=== PATIENT | female | born 1955 | race Asian ===

== ENCOUNTER 2016-10-03 08:12 | Day surgery (SDC) | payer OTHER ==
[~2016-10-03] VITALS: Ht 157.5 cm; Wt 90.7 kg
[~2016-10-03 08:12] MED LIST: ALBUTEROL0.83 MG/ML IH; BONIVA150 MG PO; CALCIUM CITRATE1 TA4 PO; CALCIUM CITRATE1 TA7 PO; FISH OIL 1000MG1 CAP PO; LISINOPRIL10 MG PO; NEXIUM 20MG CAP20 MG PO; NEXIUM 40MG40 MG PO; NORVASC 5MG5 MG/TAB PO; OMEGA 31000 MG PO; OSCAL 500MG/VI500 MG PO; PAXIL 20MG20 MG PO; ROXICODONE 55 MG/TAB PO; RT ALBUTER2.5 MG/0.5 IH; RT SPIRIVA18 MCG IH; SEREVENT IH; SINGULAIR 110 MG/TAB PO; SINGULAIR10 MG PO; SPIRIVA INH IH; XOLAIR150 MG SC; ZOCOR 10MG10 MG; ZOCOR 20MG20 MG PO; ZYLOPRIM 300MG300 MG PO; ZYRTEC 10MG PO; ZYRTEC 10MG10 MG PO
[2016-10-03 08:58] VITALS: BP 140/71; PULSE 86; TEMP 97.6
[2016-10-03] MEDS ORDERED: RT ADVAIR 528 DISKUS IH (09:09)
[2016-10-03 10:30] VITALS: BP 130/65; PULSE 95; TEMP 98.4
[2016-10-03 10:45] VITALS: BP 126/67; PULSE 83
[2016-10-03 11:00] VITALS: BP 124/66; PULSE 85
[2016-10-03 11:15] VITALS: BP 125/71; PULSE 83
== END 2016-10-03 12:00 | disposition home or self-care (01) ==
LOC: SDCO 08:12
DX: J44.0 Chronic obstructive pulmonary disease with (acute) lower respiratory infection (principal); J20.9 Acute bronchitis, unspecified; J45.40 Moderate persistent asthma, uncomplicated; J32.8 Other chronic sinusitis; J30.9 Allergic rhinitis, unspecified; I10 Essential (primary) hypertension; K21.9 Gastro-esophageal reflux disease without esophagitis; M10.9 Gout, unspecified; G47.33 Obstructive sleep apnea (adult) (pediatric); Z90.2 Acquired absence of lung [part of]; Z87.891 Personal history of nicotine dependence
CPT/HCPCS: J0456; J2704; J2920; J7050; J7120

== ENCOUNTER → 2016-10-22 | Outpatient (CLI) | payer OTHER ==
[~2016-10-22] MED LIST changes: +RT ADVAIR 528 DISKUS IH
== END ==
LOC: COL.PUL 10:35
DX: J44.9 Chronic obstructive pulmonary disease, unspecified (principal); Z87.891 Personal history of nicotine dependence

== ENCOUNTER 2016-12-09 11:00 | Outpatient (RCR) | payer OTHER ==
[2016-10-10 10:19] VITALS: BP 139/66; PULSE 75; TEMP 97.9
[2016-11-06 14:43] VITALS: BP 127/68; PULSE 85; TEMP 98.3
[~2016-12-09] VITALS: Ht 157.5 cm; Wt 88.1 kg
[2016-12-09 11:15] VITALS: BP 128/78; PULSE 67; TEMP 98
== END 2017-01-08 ==
LOC: EUO
DX: J44.9 Chronic obstructive pulmonary disease, unspecified (principal); Z79.899 Other long term (current) drug therapy
CPT/HCPCS: J2357

== ENCOUNTER 2017-03-12 11:00 | Outpatient (RCR) | payer OTHER ==
[2017-01-16 09:16] VITALS: BP 131/74; PULSE 82; TEMP 98.2
[2017-02-12 10:26] VITALS: BP 148/79; PULSE 93; TEMP 97.3
[~2017-03-12] VITALS: Ht 157.5 cm; Wt 91.0 kg
[2017-03-12 10:45] VITALS: BP 125/77; PULSE 81
== END 2017-04-16 | disposition home or self-care (01) ==
LOC: EUO
DX: J44.9 Chronic obstructive pulmonary disease, unspecified (principal)

== ENCOUNTER → 2018-08-16 | Outpatient (CLI) | payer OTHER, MEDICARE ==
[~2018-08-16] VITALS: Ht 157.5 cm; Wt 98.6 kg
[~2018-08-16] MED LIST changes: +PROTONIX 40MG T40 MG PO
[2018-08-16 11:23] VITALS: BP 123/96; PULSE 80; TEMP 97.8
== END ==
LOC: EUO 10:41
DX: Z79.899 Other long term (current) drug therapy (principal)
CPT/HCPCS: J2357

== ENCOUNTER → 2018-10-22 | Outpatient (CLI) | payer MEDICARE, OTHER | LOC: ZCOL.LAB 21:22 | DX: L30.9 Dermatitis, unspecified (principal) ==

== ENCOUNTER 2021-05-14 08:02 | Inpatient (IN) | payer MEDICARE, OTHER ==
[~2021-05-14] VITALS: Ht 157.5 cm; Wt 82.2 kg
[~2021-05-14 08:02] MED LIST changes: +EPA FISH OIL1 SGL PO; +NORVASC 10MG10 MG PO; -OMEGA 31000 MG PO; -PROTONIX 40MG T40 MG PO; +PROTONIX20 MG PO; +RT ADVAIR 228 DISKUS IH; -RT ADVAIR 528 DISKUS IH
[2021-05-14 09:22] LABS: BASO % 0.2 % (0.0-2.0); EOS % 0.2 % (0.0-4.0); GRAN # 3.6 K/mm3 (1.4-6.5); HEMATOCRIT 39.6 % (37.0-47.0); HEMOGLOBIN 12.5 g/dl (12.5-16.0); LYMPH # 0.9 K/mm3 (1.2-3.4); LYMPH % 17.8 % (20.0-51.0); MEAN CELL VOLUME 72 fl (80.0-100.0); MEAN CORPUSCULAR HEMOGLOBIN 23 pg (27-31); MEAN CORPUSCULAR HGB CONC 32 g/dl (33.0-37.0); MONO # 0.5 K/mm3 (0.1-0.6); MONO % 9.4 % (1.7-9.3); PLATELET COUNT 165 K/mm3 (130-400); RED BLOOD COUNT 5.53 M/mm3 (4.10-5.30); REDCELL DISTRIBUTION WIDTH-CV 18.8 % (11.5-14.5)
[2021-05-14 09:34] LABS: ALANINE AMINOTRANSFERASE 23 U/L (0-55); ALBUMIN 3.7 gm/dL (3.4-4.8); ALKALINE PHOSPHATASE 83 U/L (40-150); ANION GAP 13 mmol/L (7-16); AST,SGOT 33 U/L (5-34); BILIRUBIN,TOTAL 0.4 mg/dL (0.2-1.2); BLOOD UREA NITROGEN 9 mg/dL (10-20); CALCIUM 8.4 mg/dL (8.4-10.2); CARBON DIOXIDE 22 mmol/L (23-31); CHLORIDE 103 mmol/L (98-107); CREATININE, serum 0.75 mg/dL (0.57-1.11); GLUCOSE 115 mg/dL (70-99); POTASSIUM 3.7 mmol/L (3.5-4.5); SODIUM 138 mmol/L (136-145)
[2021-05-14 09:53] LABS: TROPONIN-I < 0.010 ng/mL (0.00-0.033)
[2021-05-14] MEDS ORDERED: MILLIPRED5 MG PO (12:51)
[2021-05-14] MEDS ORDERED: ATARAX 25MG25 MG/TAB PO (12:52)
[2021-05-14] MEDS ORDERED: DUPIXENT300 MG/2 M SQ (12:53)
--- NOTE | 2021-05-14 14:06 | NUR ---
PT ADMISSION INTAKE AND ASSESSMENT COMPLETED. DENIES ANY PAIN. CURRENTLY ON 4.5L VIA NC. ORIENTED PT TO ROOM. DENIES ANY NEEDS AT THIS TIME. WILL CONTINUE TO MONITOR.
[2021-05-14 16:30] VITALS: BP 148/58; PULSE 85; TEMP 99.3
[2021-05-14 19:29] VITALS: BP 121/61; PULSE 80; TEMP 98.8
--- NOTE | 2021-05-14 20:30 | NUR ---
Initial shift assessment done- states is SOB with exertion, using BSC withoutproblems. VSS o2 at 4.5L/nc, sats 92%, tele on SR, lung sounds with scattered wheezing-will call resp therapy for a treatment , states onlt has pain with coughing -
[2021-05-14 23:50] VITALS: BP 125/60; PULSE 80; TEMP 98.6
[2021-05-15 04:39] VITALS: BP 129/61; PULSE 90; TEMP 98.1
--- NOTE | 2021-05-15 05:54 | NUR ---
Quiet night, VSS, no requests, o2 at 5L/nc sats 90- 91%
[2021-05-15 06:37] LABS: HEMOGLOBIN 11.5 g/dl (12.5-16.0); MEAN CELL VOLUME 72 fl (80.0-100.0); MEAN CORPUSCULAR HEMOGLOBIN 22 pg (27-31); MEAN CORPUSCULAR HGB CONC 31 g/dl (33.0-37.0); PLATELET COUNT 169 K/mm3 (130-400); RED BLOOD COUNT 5.13 M/mm3 (4.10-5.30); REDCELL DISTRIBUTION WIDTH-CV 18.1 % (11.5-14.5)
[2021-05-15 06:46] LABS: HEMATOCRIT 36.8 % (37.0-47.0)
[2021-05-15 07:08] LABS: ALBUMIN 3.1 gm/dL (3.4-4.8); C-REACTIVE PROTEIN 6.07 mg/dL (0.00-0.50); CALCIUM 8.2 mg/dL (8.4-10.2); CREATININE, serum 0.67 mg/dL (0.57-1.11); MAGNESIUM 2.1 mg/dL (1.6-2.6); PHOSPHOROUS 3.1 mg/dL (2.3-4.7)
[2021-05-15 07:20] LABS: BAND 6 % (0-10); LYMPHOCYTE 28 % (20.0-51.0); NEUTROPHILS 54 % (42.0-75.2); PLATELET ESTIMATE NORMAL (NORMAL)
[2021-05-15 08:00] VITALS: BP 116/73; PULSE 82; TEMP 98.8
--- NOTE | 2021-05-15 10:08 | NUR ---
The patient is COVID positive. SW contacted the patient to discuss discharge plan. The patient lives in [place] with her , Desean (ph#[phone]). She reports independence with ADLs and has a cane and walker available. The patient states that she has nocturnal oxygen and a CPAP from [facility]. The patient's receives primary care at [facility] and she receives her medications from [place] [facility]. The patient does not have a DPOA-HC and she was not interested in completing one at this time. The patient plans on returning home with her upon discharge. The patient is currently requiring 6 liters of oxygen. SW to continue to monitor. *Discharge plan: home with *
[2021-05-15 11:30] VITALS: BP 110/61; PULSE 80; TEMP 98.3
[2021-05-15 16:00] VITALS: BP 119/57; PULSE 78; TEMP 97.8
[2021-05-15 21:31] VITALS: BP 113/38; PULSE 79; TEMP 99
[2021-05-15 23:30] VITALS: BP 108/57; PULSE 73; TEMP 97.9
--- NOTE | 2021-05-16 03:10 | NUR ---
patient doing well tonight. denies pain. int patent and flushes. 5 L O2 infusing via NC. scheduled medications given, see MAR.
[2021-05-16 03:42] VITALS: BP 122/69; PULSE 76; TEMP 97.5
[2021-05-16 06:57] LABS: HEMOGLOBIN 11.6 g/dl (12.5-16.0); MEAN CELL VOLUME 72 fl (80.0-100.0); MEAN CORPUSCULAR HEMOGLOBIN 23 pg (27-31); MEAN CORPUSCULAR HGB CONC 32 g/dl (33.0-37.0); PLATELET COUNT 210 K/mm3 (130-400); RED BLOOD COUNT 5.08 M/mm3 (4.10-5.30); REDCELL DISTRIBUTION WIDTH-CV 18.6 % (11.5-14.5)
[2021-05-16 07:01] LABS: HEMATOCRIT 36.7 % (37.0-47.0)
[2021-05-16 07:31] LABS: CREATININE, serum 0.71 mg/dL (0.57-1.11); MAGNESIUM 2.1 mg/dL (1.6-2.6); PHOSPHOROUS 3.1 mg/dL (2.3-4.7); POTASSIUM 4.1 mmol/L (3.5-4.5)
[2021-05-16 07:50] LABS: BAND 1 % (0-10); LYMPHOCYTE 17 % (20.0-51.0); NEUTROPHILS 73 % (42.0-75.2)
[2021-05-16 07:51] LABS: ANISOCYTOSIS 1+; HYPOCHROMIA 2+; MICROCYTOSIS 1+; PLATELET ESTIMATE NORMAL (NORMAL)
[2021-05-16 07:55] LABS: OVALOCYTES 1+; TARGET CELLS 1+
[2021-05-16 08:30] VITALS: BP 114/50; PULSE 79; TEMP 98.3
[2021-05-16 13:00] VITALS: BP 122/58; PULSE 79
[2021-05-16 16:25] VITALS: BP 139/82; PULSE 112; TEMP 98.9
[2021-05-16 19:57] VITALS: BP 117/56; PULSE 71; TEMP 98
--- NOTE | 2021-05-16 21:22 | NUR ---
ALERT ANDOX3. DENIES SOA EXC W AMBULATION. NO CHEST PAIN OR DIZZY. NO PAIN- HEAD ACHES, REQ TYL AND ORDERED. ASSESSMENT COMPLETE. IV DOXY HUNG.PM MEDS. CALL [facility] REACH.
[2021-05-16 23:59] VITALS: BP 114/41; PULSE 75; TEMP 98.2
[2021-05-17 04:31] VITALS: BP 111/57; PULSE 82; TEMP 98.6
[2021-05-17 06:15] LABS: HEMATOCRIT 37.3 % (37.0-47.0); HEMOGLOBIN 11.6 g/dl (12.5-16.0); MEAN CELL VOLUME 73 fl (80.0-100.0); MEAN CORPUSCULAR HEMOGLOBIN 23 pg (27-31); MEAN CORPUSCULAR HGB CONC 31 g/dl (33.0-37.0); PLATELET COUNT 279 K/mm3 (130-400); RED BLOOD COUNT 5.11 M/mm3 (4.10-5.30); REDCELL DISTRIBUTION WIDTH-CV 18.1 % (11.5-14.5)
[2021-05-17 06:28] LABS: ALBUMIN 3.1 gm/dL (3.4-4.8); C-REACTIVE PROTEIN 1.07 mg/dL (0.00-0.50); CALCIUM 8.3 mg/dL (8.4-10.2); CREATININE, serum 0.69 mg/dL (0.57-1.11); PHOSPHOROUS 3.3 mg/dL (2.3-4.7)
[2021-05-17 07:59] LABS: BAND 4 % (0-10); LYMPHOCYTE 19 % (20.0-51.0); NEUTROPHILS 66 % (42.0-75.2); OVALOCYTES 1+; PLATELET ESTIMATE NORMAL (NORMAL)
--- NOTE | 2021-05-17 08:20 | NUR ---
PATIENT IS A&O X 4, NO ACUTE DISTRESS. ASSESSMENT IS NOT ATYPICAL FOR PATIENT WITH COVID, PATIENT HAS NO CONCERNS AT THIS TIME. IV SITE HAS NO REDNESS OR SWELLING, FLUSHES WELL.
[2021-05-17 08:30] VITALS: BP 111/46; PULSE 78; TEMP 98.2
[2021-05-17 11:39] VITALS: BP 134/62; PULSE 81; TEMP 98
[2021-05-17 16:16] VITALS: BP 132/63; PULSE 80
[2021-05-17 20:30] VITALS: BP 140/78; PULSE 89; TEMP 98
--- NOTE | 2021-05-17 21:29 | NUR ---
ALERT ANDOX4. DENIES SOA WHEN IN BED, IV TO RT AC LOOKS RED AND C/O SORENESS. DC'D. NEW SITE TO LEFT FA WITHOUT INCIDENT. IV ANTIBOTICS AND PM MEDS GIVEN. PT CALL LIGHT WI REACH. NEEDS MET.
[2021-05-18 00:23] VITALS: BP 126/59; PULSE 75; TEMP 98.4
[2021-05-18 04:44] VITALS: BP 133/69; PULSE 84; TEMP 98.4
--- NOTE | 2021-05-18 06:03 | NUR ---
RESTED WITHOUT INCIDENT. ANTICIPATES DC TODAY. NEEDS MET
[2021-05-18 07:38] LABS: HEMATOCRIT 37.3 % (37.0-47.0); HEMOGLOBIN 11.7 g/dl (12.5-16.0); MEAN CELL VOLUME 73 fl (80.0-100.0); MEAN CORPUSCULAR HEMOGLOBIN 23 pg (27-31); MEAN CORPUSCULAR HGB CONC 31 g/dl (33.0-37.0); MEAN PLATELET VOLUME 12.2 fl (7.4-10.4); PLATELET COUNT 240 K/mm3 (130-400); REDCELL DISTRIBUTION WIDTH-CV 18.2 % (11.5-14.5)
[2021-05-18 08:05] VITALS: BP 122/62; PULSE 76; TEMP 98.1
[2021-05-18 08:05] LABS: ALBUMIN 3.1 gm/dL (3.4-4.8); C-REACTIVE PROTEIN 0.58 mg/dL (0.00-0.50); CREATININE, serum 0.64 mg/dL (0.57-1.11); MAGNESIUM 1.9 mg/dL (1.6-2.6); PHOSPHOROUS 2.9 mg/dL (2.3-4.7); POTASSIUM 3.6 mmol/L (3.5-4.5)
[2021-05-18 08:45] LABS: BAND 1 % (0-10); NEUTROPHILS 67 % (42.0-75.2)
[2021-05-18 08:46] LABS: LYMPHOCYTE 20 % (20.0-51.0); OVALOCYTES 1+
[2021-05-18 08:47] LABS: PLATELET ESTIMATE NORMAL (NORMAL)
--- NOTE | 2021-05-18 10:30 | NUR ---
PT RESTING IN BED, MORNING MEDICATIONS GIVEN. SHIFT ASSESSMENT COMPLETED. DENIES ANY PAIN OR NEEDS. CURRENTLY ON 4L VIA NC. IV INFILTRATED, NEW SITE STARTED TO R FOREARM. WILL CONTINUE TO MONITOR.
[2021-05-18 11:39] VITALS: BP 140/79; PULSE 85; TEMP 98.2
[2021-05-18 16:13] VITALS: BP 127/61; PULSE 82; TEMP 97.7
[2021-05-18 19:58] VITALS: BP 129/59; PULSE 72; TEMP 98
--- NOTE | 2021-05-18 20:54 | NUR ---
ALERT AND OX4. DENIES SOA, OR CHEST PAIN. PM MEDS GIVEN. IV ANTIBOTICS. CALL LIGHT WI REACH.
[2021-05-19 00:45] VITALS: BP 117/69; PULSE 83; TEMP 97.7
[2021-05-19 04:55] VITALS: BP 142/65; PULSE 72; TEMP 97.8
[2021-05-19 06:41] LABS: HEMATOCRIT 38.5 % (37.0-47.0); HEMOGLOBIN 12.3 g/dl (12.5-16.0); MEAN CELL VOLUME 72 fl (80.0-100.0); MEAN CORPUSCULAR HEMOGLOBIN 23 pg (27-31); MEAN CORPUSCULAR HGB CONC 32 g/dl (33.0-37.0); MEAN PLATELET VOLUME 11.7 fl (7.4-10.4); PLATELET COUNT 257 K/mm3 (130-400); RED BLOOD COUNT 5.37 M/mm3 (4.10-5.30); REDCELL DISTRIBUTION WIDTH-CV 18.2 % (11.5-14.5)
[2021-05-19 06:59] LABS: ALBUMIN 3.3 gm/dL (3.4-4.8); C-REACTIVE PROTEIN 0.43 mg/dL (0.00-0.50); CALCIUM 8.2 mg/dL (8.4-10.2); CREATININE, serum 0.65 mg/dL (0.57-1.11); PHOSPHOROUS 2.6 mg/dL (2.3-4.7); POTASSIUM 3.4 mmol/L (3.5-4.5)
[2021-05-19 07:47] LABS: LYMPHOCYTE 23 % (20.0-51.0); NEUTROPHILS 72 % (42.0-75.2)
[2021-05-19 07:48] LABS: ANISOCYTOSIS 1+; HYPOCHROMIA 1+; MICROCYTOSIS 1+; PLATELET ESTIMATE NORMAL (NORMAL)
[2021-05-19 07:49] LABS: OVALOCYTES 1+
[2021-05-19 07:51] LABS: TARGET CELLS 1+
[2021-05-19 08:35] VITALS: BP 125/61; PULSE 79; TEMP 98.5
--- NOTE | 2021-05-19 10:28 | NUR ---
PT RESTING IN BED, MORNING MEDICATIONS GIVEN. SHIFT ASSESSMENT COMPLETED. DENIES ANY PAIN OR NEEDS. CURRENTLY ON 4L VIA NC. EAGER TO GO HOME. WILL CONTINUE TO MONITOR.
[2021-05-19 11:01] VITALS: BP 116/59; PULSE 80; TEMP 97.4
[2021-05-19] MEDS ORDERED: DOXYCYCLINE HY100 MG PO (13:32)
[2021-05-19] MEDS ORDERED: DECADRON6 MG PO (13:34)
--- NOTE | 2021-05-19 15:35 | NUR ---
DISCHARGE INSTRUCTIONS GIVEN. IV D/C. TAKEN DOWN AND DISCHARGED HOME AT THIS TIME.
== END 2021-05-19 15:36 | disposition home or self-care (01) | DRG 177 ==
LOC: COL.ER 08:02 → MEDICAL 11:44
PROVIDERS: Student in an Organized Health Care Education/Training Program; ADMIT Internal Medicine
PROC: XW033E5 Introduction of Remdesivir Anti-infective into Peripheral Vein, Percutaneous Approach, New Technology Group 5 (ICD-10-PCS; principal; 2021-05-14)
DX: U07.1 COVID-19 (principal); J12.82 Pneumonia due to coronavirus disease 2019; J96.01 Acute respiratory failure with hypoxia; J44.0 Chronic obstructive pulmonary disease with (acute) lower respiratory infection; I10 Essential (primary) hypertension; E78.5 Hyperlipidemia, unspecified; I25.10 Atherosclerotic heart disease of native coronary artery without angina pectoris; G47.33 Obstructive sleep apnea (adult) (pediatric); F32.A Depression, unspecified; K21.9 Gastro-esophageal reflux disease without esophagitis; J45.30 Mild persistent asthma, uncomplicated; Z73.0 Burn-out; Z99.81 Dependence on supplemental oxygen; Z87.891 Personal history of nicotine dependence
CPT/HCPCS: 99223-AI; 99233-AI; 99239; J0248; J0696; J1100; J1650; J7050